=== PATIENT | female | born 1965 | race Caucasian/White ===

== ENCOUNTER 2021-06-04 12:20 | Emergency (ER) | payer SELFPAY ==
[2021-06-04 13:29] LABS: HEMOGLOBIN 14.3 gm/dl (12.3-15.3); RED BLOOD COUNT 4.98 M/UL (4.00-5.10); WHITE BLOOD COUNT 9.9 K/UL (4.5-11.0)
[2021-06-04 14:11] LABS: BUN/CREATININE RATIO 19 (0-10)
[2021-06-04] MEDS ORDERED: BAYER CHEWABLE81 MG PO (17:02)
== END 2021-06-04 17:10 | disposition home or self-care (01) ==
LOC: ER1 12:20
PROVIDERS: Physician Assistant
DX: R07.2 Precordial pain (principal); Z95.5 Presence of coronary angioplasty implant and graft; Z88.5 Allergy status to narcotic agent
CPT/HCPCS: 71045; 80053; 82550; 82553; 83874; 84484; 85025; 93005; 99285